=== PATIENT | female | born 1970 | race Caucasian/White ===

== ENCOUNTER → 2024-07-23 13:40 | Outpatient (REF) | payer OTHER, SELFPAY | LOC: WDC 13:40 | PROVIDERS: ATTENDING PHYSICIAN Nurse Practitioner Adult Health; FAMILY PHYSICIAN Family Medicine | DX: N63.20 Unspecified lump in the left breast, unspecified quadrant (principal); N63.22 Unspecified lump in the left breast, upper inner quadrant | CPT/HCPCS: 76642 ==

== ENCOUNTER → 2024-07-24 09:31 | Outpatient (REF) | payer OTHER, SELFPAY ==
--- NOTE | 2024-07-25 08:25 | OID.BR.INTR ---
OID Breast Navigator - Initial
- -
Did not meet patient at time of biopsy. Will follow up per protocol.
== END ==
LOC: WDC 09:31
PROVIDERS: ATTENDING PHYSICIAN Nurse Practitioner Adult Health; FAMILY PHYSICIAN Family Medicine
DX: N63.22 Unspecified lump in the left breast, upper inner quadrant (principal)
CPT/HCPCS: 88305; 19083; 88341; 88342; 88360; A4648

== ENCOUNTER → 2024-08-09 16:18 | Outpatient (REF) | payer OTHER, SELFPAY | LOC: MRI 3T 16:18 | PROVIDERS: ATTENDING PHYSICIAN Internal Medicine Hematology & Oncology; FAMILY PHYSICIAN Family Medicine | DX: C50.819 Malignant neoplasm of overlapping sites of unspecified female breast (principal) | CPT/HCPCS: 77049; A9585 ==

== ENCOUNTER → 2024-08-20 07:04 | Outpatient (REF) | payer OTHER, SELFPAY | LOC: HWRAD 07:04 | PROVIDERS: ATTENDING PHYSICIAN Surgery; FAMILY PHYSICIAN Family Medicine | DX: R16.0 Hepatomegaly, not elsewhere classified (principal); R93.89 Abnormal findings on diagnostic imaging of other specified body structures | CPT/HCPCS: 76700 ==

== ENCOUNTER → 2024-08-21 14:48 | Outpatient (REF) | payer OTHER, SELFPAY | LOC: WDC 14:48 | PROVIDERS: ATTENDING PHYSICIAN Surgery; FAMILY PHYSICIAN Family Medicine; REFERRING PHYSICIAN Internal Medicine Hematology & Oncology | DX: R92.8 Other abnormal and inconclusive findings on diagnostic imaging of breast (principal) | CPT/HCPCS: 76642 ==

== ENCOUNTER → 2024-10-08 13:28 | Outpatient (REF) | payer OTHER, SELFPAY | LOC: WDC 13:28 | PROVIDERS: ATTENDING PHYSICIAN Internal Medicine Hematology & Oncology | DX: N63.32 Unspecified lump in axillary tail of the left breast (principal) | CPT/HCPCS: 76642 ==

== ENCOUNTER → 2024-12-18 09:49 | Outpatient (REF) | payer OTHER, SELFPAY | LOC: RAD 09:49 | PROVIDERS: ATTENDING PHYSICIAN Internal Medicine Hematology & Oncology; FAMILY PHYSICIAN Family Medicine | DX: C50.819 Malignant neoplasm of overlapping sites of unspecified female breast (principal) | CPT/HCPCS: 77080 ==

== ENCOUNTER 2024-12-26 06:25 | Day surgery (SDC) | payer OTHER, SELFPAY | END 2024-12-26 14:44 | disposition home or self-care (01) | LOC: GI 06:25 | PROVIDERS: ATTENDING PHYSICIAN Internal Medicine | DX: Z12.11 Encounter for screening for malignant neoplasm of colon (principal); K64.8 Other hemorrhoids; K55.20 Angiodysplasia of colon without hemorrhage; K57.30 Diverticulosis of large intestine without perforation or abscess without bleeding; D12.0 Benign neoplasm of cecum; K63.5 Polyp of colon; Z83.719 Family history of colon polyps, unspecified | CPT/HCPCS: 45385; 45380; 88305 ==

== ENCOUNTER → 2025-07-29 09:20 | Outpatient (REF) | payer OTHER, SELFPAY | LOC: RCS 09:20 | PROVIDERS: ATTENDING PHYSICIAN Nurse Practitioner; FAMILY PHYSICIAN Family Medicine | DX: R06.02 Shortness of breath (principal) | CPT/HCPCS: 93306 ==